=== PATIENT | male | born 1980 | race Caucasian/White ===

== ENCOUNTER 2018-03-03 09:35 | Emergency (ER) | payer OTHER ==
[2018-03-03 10:25] LABS: Absolute Monocytes 0.5 K/uL (0.1-1.3); Absolute Neutrophil 7.4 K/uL (1.8-8.0); Basophils % 0.2 % (0-1.3); Eosinophils % 1.4 % (0-4.4); Hematocrit 45.3 % (39.6-49.0); Lymphocytes % 19.7 % (15.3-44.8); MCH 29.2 pg (27.0-35.0); MCV 83.4 fL (80-100); MPV 7.7 fL (7.6-11.3); Monocytes % 4.9 % (3.3-12.3); RBC Red Blood Cell Count 5.43 M/uL (4.33-5.43)
[2018-03-03 10:34] LABS: Protime INR 0.99
[2018-03-03 10:50] LABS: ALT/SGPT 39 U/L (12-78); AST/SGOT 14 U/L (15-37); Alkaline Phosphatase 94 U/L (45-117); BUN Blood Urea Nitrogen 13 mg/dL (7-18); Bicarbonate 24 mmol/L (21-32); Bilirubin Direct 0.1 mg/dL (0-0.2); Bilirubin Total 0.5 mg/dL (0.2-1.0); Glucose Level 112 mg/dL (74-106); Magnesium 2.5 mg/dL (1.8-2.4); NT PRO-BNP 12 pg/mL (<125); Potassium 4.4 mmol/L (3.5-5.1); Protein, Total 7.7 g/dL (6.4-8.2); Sodium Level 138 mmol/L (136-145); Troponin (Emerg Dept Use Only) < 0.02 ng/mL (0.0-0.045)
--- NOTE | 2018-03-03 11:31 | RAD REPORT ---
EXAM DESCRIPTION: RAD - Chest Single View - 03/03/2018 10:44 am CLINICAL HISTORY: Chest pain COMPARISON: None. TECHNIQUE: AP portable chest image was obtained 1032 hours . FINDINGS: Lungs are clear. Heart and vasculature are normal. No measurable pleural effusion and no p neumothorax. No acute bony abnormality seen. No acute aortic findings suspected. IMPRESSION: No acute cardiopulmonary process.
--- NOTE | 2018-03-03 11:43 | RAD REPORT ---
EXAM DESCRIPTION: CT - Neck Angio - 03/03/2018 11:27 am CLINICAL HISTORY: Left-sided paresthesia as, hypertension, left subclavian steal symptoms TECHNIQUE: During dynamic enhancement using nonionic IV contrast, axial 2 mm thick images of the nec k were obtained. Sagittal and axial reconstruction images were generated and reviewed using maximum i ntensity projection protocol. All CT scans are performed using dose optimization technique as appropriate and may include automated exposure control or mA/KV adjustment according to patient size. COMPARISON: None FINDINGS: No aneurysm or vascular malformation identified. No carotid or vertebral dissection. Aortic arch is a 3 vessel configuration. The innominate, left common carotid and left subclavian tennille kang show no stenosis or acute finding. The right and left vertebral artery origins are unremarkable as well. No dissection, stenosis or acute vertebral artery finding. Vertebral arteries are codominant . Basilar artery without focal abnormality. Bilateral common carotid arteries are unremarkable. From origin to the [place], the bilateral internal carotid arteries unremarkable as well. IMPRESSION: Negative CT angio neck examination. No findings to support subclavian steal or other va scular abnormality.
--- NOTE | 2018-03-03 12:36 | ER ---
Nurse's Notes [facility] Name: Ivon Anthony II Age: 37 yrs Sex: Male : 1980 Arrival Date: 03/03/2018 Time: 09:39 Bed 18 Private MD: Geo Deluna E Diagnosis: Chest pain, unspecified Presentation: 03/03 09:45 Presenting complaint: Patient states: chest pain 6/10 and "racing heart" that began ss approx 1 hour ago. Pt reports that he has been seeing a financial services counselor for this and all they could tell him is that it is his high blood pressure. Pt reports, "it feels like I've been running". Transition of care: patient was not received from another setting of care. Onset of symptoms was March 03, 2018. Risk Assessment: Do you want to hurt yourself or someone else? Patient reports no desire to harm self or others. Initial Sepsis Screen: Does the patient meet any 2 criteria? No. Patient's initial sepsis screen is negative. Does the patient have a suspected source of infection? No. Patient's initial sepsis screen is negative. Care prior to arrival: None. 09:45 Method Of Arrival: Ambulatory ss 09:45 Acuity: MARCELO 3 ss Historical: - Allergies: 09:46 No Known Allergies; ss - Home Meds: 09:46 lisinopril 10 mg Oral tab 1 tab once daily [Active]; Lyrica Oral [Active]; ss - PMHx: 09:46 Hypertension; ss - PSHx: 09:46 None; ss - Immunization history:: Adult Immunizations up to date. - Social history:: Smoking status: Patient/guardian denies using tobacco, Patient/guardian denies using alcohol, street drugs. - Ebola Screening: : Patient negative for fever greater than or equal to 101.5 degrees Fahrenheit, and additional compatible Ebola Virus Disease symptoms Patient denies exposure to infectious person Patient denies travel to an Ebola-affected area in the 21 days before illness onset. Screenin:45 Abuse screen: Denies threats or abuse. Denies injuries from another. Nutritional sv screening: No deficits noted. Tuberculosis screening: No symptoms or risk factors identified. Fall Risk None identified. Assessment: 09:45 General: Appears in no apparent distress. uncomfortable, Behavior is calm, cooperative, sv appropriate for age. General: Reports he was outside standing when the pain started. Pain: Complains of pain in xyphoid area and mid-sternal area Pain does not radiate. Pain currently is 6 out of 10 on a pain scale. Pain began suddenly, 30 min ago. Is continuous. Neuro: Level of Consciousness is awake, alert, obeys commands, Oriented to person, place, time, situation, Moves all extremities. Full function Gait is steady. Cardiovascular: Reports chest pain, palpitations, "felt like my heart was racing." Heart tones S1 S2 present Patient's skin is warm and dry. Pulses are 3+ in right radial artery and left radial artery Rhythm is sinus rhythm. Respiratory: Airway is patent Respiratory effort is even, unlabored, Respiratory pattern is regular, symmetrical, Breath sounds are clear bilaterally. Derm: Skin is pink, warm \\T\\ dry. Vital Signs: 09:46 BP 149 / 98; Pulse 93; Resp 17; Temp 97.7(TE); Pulse Ox 100% on R/A; Weight 99.79 kg; ss Height 5 ft. 10 in. (177.80 cm); Pain 6/10; 10:18 BP 127 / 75 Supine; Pulse 90; Resp 16; Pulse Ox 98% on R/A; mh5 10:22 BP 140 / 103 LA Sitting; Pulse 88; Resp 12; Pulse Ox 100% on R/A; mh5 10:24 BP 140 / 107 Standing; Pulse 90; Resp 7; Pulse Ox 100% on R/A; mh5 10:26 BP 134 / 86 RA; Pulse 77; Resp 10; Pulse Ox 100% on R/A; mh5 10:39 BP 131 / 76 LA Sitting; Pulse 81; Resp 6; Pulse Ox 100% ; mh5 10:41 BP 126 / 78 RA Sitting; Pulse 82; Resp 7; Pulse Ox 100% on R/A; mh5 11:49 BP 142 / 80; Pulse 80; Resp 12; Pulse Ox 100% ; sv 09:46 Body Mass Index 31.57 (99.79 kg, 177.80 cm) ED Course: 09:39 Patient arrived in ED. sb2 09:39 Geo Deluna MD is Private Physician. sb2 09:43 EKG done, by studio technician. reviewed by Judah Carroll MD. mh5 09:45 Patient has correct armband on for positive identification. Placed in gown. Bed in low sv position. Call light in reach. court recording monitor on. Pulse ox on. NIBP on. Door closed. Head of bed elevated. 09:46 Triage completed. ss 09:46 Arm band placed on right wrist. ss 09:49 Nicki Hill, PRIYANK is Primary Nurse. sv 09:51 Román Sosa PA is PHCP. jr 09:51 Judah Carroll MD is Attending Physician. jr 09:59 Nurse Practitioner and/or Physician Durable Medical Equipment Repairer to see patient. sv 10:15 Initial lab(s) drawn, by mt, sent to lab. Inserted saline lock: 20 gauge in right sv antecubital area, using aseptic technique. Blood collected. Flushed right antecubital with 5 ml normal saline. Patient maintains SpO2 saturation greater than 95% on room air. 10:33 X-ray(s) taken. sv 10:38 X-ray completed. Portable x-ray completed in exam room. Patient tolerated procedure jb2 well. 10:45 XRAY Chest (1 view) In Process Unspecified. EDMS 11:28 CT Neck Angio In Process Unspecified. EDMS 12:08 Troponin (emerg Dept Use Only) Sent. [facility] 12:08 Repeat lab(s) drawn. sent to lab. [facility] 13:00 No provider procedures requiring assistance completed. IV discontinued, intact, sv bleeding controlled, No redness/swelling at site. Pressure dressing applied. Administered Medications: No medications were administered Outcome: 12:36 Discharge ordered by . [facility] 13:00 Patient left the ED. sv 13:00 Discharged to home ambulatory, with significant other. sv 13:00 Condition: stable 13:00 Discharge instructions given to patient, Instructed on discharge instructions, follow up and referral plans. Demonstrated understanding of instructions, follow-up care. Signatures: Dispatcher [employer] EDTN Nicki Hill RN RN Juan Miguel Moore jb2 Maria Luisa Martínez RN RN Román Sosa PA PA Nikkie Marie [facility] Apryl Rocha2
--- NOTE | 2018-03-03 12:36 | EDPHYS ---
Physician Documentation [facility] Name: Ivon Anthony II Age: 37 yrs Sex: Male : 1980 Arrival Date: 03/03/2018 Time: 09:39 Bed 18 Private MD: Geo Deluna E ED Physician Judah Carroll HPI: 03/03 12:04 This 37 yrs old Male presents to ER via Ambulatory with complaints of Chest jr8 Pain. 12:04 The patient or guardian reports chest pain that is located primarily in the substernal jr8 area. The pain does not radiate. Associated signs and symptoms: Pertinent positives: dizziness, lower extremity pain, near-syncope. The chest pain is described as a heaviness. Duration: The patient or guardian reports a single episode. Modifying factors: The symptoms are alleviated by nothing. the symptoms are aggravated by nothing. Severity of pain: At its worst the pain was moderate in the emergency department the pain has improved. The patient has experienced similar episodes in the past, several times. The patient has been recently seen by a physician:. Patient has been seeing cardiology for symptoms listed above without acute finding thus far. Had episode today at work. Historical: - Allergies: 09:46 No Known Allergies; ss - Home Meds: 09:46 lisinopril 10 mg Oral tab 1 tab once daily [Active]; Lyrica Oral [Active]; ss - PMHx: 09:46 Hypertension; ss - PSHx: 09:46 None; ss - Immunization history:: Adult Immunizations up to date. - Social history:: Smoking status: Patient/guardian denies using tobacco, Patient/guardian denies using alcohol, street drugs. - Ebola Screening: : Patient negative for fever greater than or equal to 101.5 degrees Fahrenheit, and additional compatible Ebola Virus Disease symptoms Patient denies exposure to infectious person Patient denies travel to an Ebola-affected area in the 21 days before illness onset. ROS: 12:06 Eyes: Negative for injury, pain, redness, and discharge, ENT: Negative for injury, jr8 pain, and discharge, Neck: Negative for injury, pain, and swelling, Respiratory: Negative for shortness of breath, cough, wheezing, and pleuritic chest pain, Abdomen/GI: Negative for abdominal pain, nausea, vomiting, diarrhea, and constipation, Back: Negative for injury and pain, MS/Extremity: Negative for injury and deformity, Skin: Negative for injury, rash, and discoloration. 12:06 Cardiovascular: Positive for chest pain, Negative for edema, orthopnea, palpitations, paroxysmal nocturnal dyspnea. 12:06 Neuro: Positive for dizziness, near syncope. Exam: 12:06 Eyes: Pupils equal round and reactive to light, extra-ocular motions intact. Lids and jr8 lashes normal. Conjunctiva and sclera are non-icteric and not injected. Cornea within normal limits. Periorbital areas with no swelling, redness, or edema. ENT: Nares patent. No nasal discharge, no septal abnormalities noted. Tympanic membranes are normal and external auditory canals are clear. Oropharynx with no redness, swelling, or masses, exudates, or evidence of obstruction, uvula midline. Mucous membranes moist. Neck: Trachea midline, no thyromegaly or masses palpated, and no cervical lymphadenopathy. Supple, full range of motion without nuchal rigidity, or vertebral point tenderness. No Meningismus. Chest/axilla: Normal chest wall appearance and motion. Nontender with no deformity. No lesions are appreciated. Cardiovascular: Regular rate and rhythm with a normal S1 and S2. No gallops, murmurs, or rubs. Normal PMI, no JVD. No pulse deficits. Respiratory: Lungs have equal breath sounds bilaterally, clear to auscultation and percussion. No rales, rhonchi or wheezes noted. No increased work of breathing, no retractions or nasal flaring. Abdomen/GI: Soft, non-tender, with normal bowel sounds. No distension or tympany. No guarding or rebound. No evidence of tenderness throughout. Back: No spinal tenderness. No costovertebral tenderness. Full range of motion. Skin: Warm, dry with normal turgor. Normal color with no rashes, no lesions, and no evidence of cellulitis. MS/ Extremity: Pulses equal, no cyanosis. Neurovascular intact. Full, normal range of motion. Neuro: Awake and alert, GCS 15, oriented to person, place, time, and situation. Cranial nerves II-XII grossly intact. Motor strength 5/5 in all extremities. Sensory grossly intact. Cerebellar exam normal. Normal gait. Vital Signs: 09:46 BP 149 / 98; Pulse 93; Resp 17; Temp 97.7(TE); Pulse Ox 100% on R/A; Weight 99.79 kg; ss Height 5 ft. 10 in. (177.80 cm); Pain 6/10; 10:18 BP 127 / 75 Supine; Pulse 90; Resp 16; Pulse Ox 98% on R/A; mh5 10:22 BP 140 / 103 LA Sitting; Pulse 88; Resp 12; Pulse Ox 100% on R/A; mh5 10:24 BP 140 / 107 Standing; Pulse 90; Resp 7; Pulse Ox 100% on R/A; mh5 10:26 BP 134 / 86 RA; Pulse 77; Resp 10; Pulse Ox 100% on R/A; mh5 10:39 BP 131 / 76 LA Sitting; Pulse 81; Resp 6; Pulse Ox 100% ; mh5 10:41 BP 126 / 78 RA Sitting; Pulse 82; Resp 7; Pulse Ox 100% on R/A; mh5 11:49 BP 142 / 80; Pulse 80; Resp 12; Pulse Ox 100% ; sv 09:46 Body Mass Index 31.57 (99.79 kg, 177.80 cm) ss MDM: 09:51 Patient medically screened. [facility] 12:35 Data reviewed: vital signs, nurses notes, lab test result(s), EKG, radiologic studies, [facility] CT scan, plain films, and as a result, I will discharge patient. Data interpreted: Pulse oximetry: on room air is 100 %. Interpretation: normal. 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 03/03 10:11 Order name: Basic Metabolic Panel; Complete Time: : [facility] 03/03 10:11 Order name: CBC with Diff; Complete Time: 10:36 [facility] 03/03 10:11 Order name: LFT's; Complete Time: [facility] 03/03 10:11 Order name: Magnesium; Complete Time: [facility] 03/03 10:11 Order name: NT PRO-BNP; Complete Time: [facility] 03/03 10:11 Order name: PT-INR; Complete Time: 10:36 8 03/03 09:50 Order name: EKG; Complete Time: 09:50 sv 03/03 09:50 Order name: EKG - Nurse/Tech; Complete Time: 09:50 sv 03/03 10:11 Order name: Troponin (emerg Dept Use Only); Complete Time: 10:51 8 03/03 10:11 Order name: XRAY Chest (1 view); Complete Time: 11:49 8 03/03 10:11 Order name: Cardiac monitoring; Complete Time: 10:26 jr8 03/03 10:12 Order name: TSH; Complete Time: 10:51 8 03/03 11:01 Order name: CT Neck Angio; Complete Time: 11:49 03/03 11:50 Order name: Troponin (emerg Dept Use Only); Complete Time: 12:35 8 03/03 10:11 Order name: IV Saline Lock; Complete Time: 10:26 8 03/03 10:11 Order name: Labs collected and sent; Complete Time: 10:27 8 03/03 10:11 Order name: O2 Per Protocol; Complete Time: 10:27 8 03/03 10:11 Order name: O2 Sat Monitoring; Complete Time: 10:27 8 03/03 10:12 Order name: Orthostatic Blood Pressure; Complete Time: 10:52 jr8 Administered Medications: No medications were administered Disposition: 14:10 Co-signature as Attending Physician, Judah Carroll MD. rn Disposition: 03/03/18 12:36 Discharged to Home. Impression: Chest pain, unspecified. - Condition is Stable. - Discharge Instructions: Nonspecific Chest Pain, Near-Syncope, Syncope. - Work release form, Family Work Release, Medication Reconciliation Form, Thank You Letter, Antibiotic Education, Prescription Opioid Use form. - Follow up: Private Physician; When: 1 - 2 days; Reason: Recheck today's complaints, Continuance of care, Re-evaluation by your physician. - Problem is new. - Symptoms have improved. Signatures: Dispatcher [employer] Nicki Elizalde RN RN sv Nieto, Roman, MD MD rn Smirch, Shelby, RN RN ss Roszak, Josh, PA PA jr8 Corrections: (The following items were deleted from the chart) 12:07 12:06 Neuro: Positive for dizziness, jr8 jr8 13:00 12:36 03/03/2018 12:36 Discharged to Home. Impression: Chest pain, unspecified. sv Condition is Stable. Forms are Medication Reconciliation Form, Thank You Letter, Antibiotic Education, Prescription Opioid Use. Follow up: Private Physician; When: 1 - 2 days; Reason: Recheck today's complaints, Continuance of care, Re-evaluation by your physician. Problem is new. Symptoms have improved. jr8
--- NOTE | 2018-03-03 13:30 | EKG ---
Test Date: 2018-03-03 Test Time: 09:43:15 Salsa Dance Instructor: NATE MEASUREMENT RESULTS: Intervals: Rate: 87 OH: 166 QRSD: 96 QT: 356 QTc: 428 [place]: P: 65 OH: 166 QRS: 57 T: 63 INTERPRETIVE STATEMENTS: Normal sinus rhythm with sinus arrhythmia Normal ECG Electronically Signed On 03-03-18 13:29:45 GANG INVESTIGATOR by Dante Bailey
== END 2018-03-03 13:00 | disposition home or self-care (01) ==
LOC: ER 09:35
DX: R07.9 Chest pain, unspecified (principal); R55 Syncope and collapse; I10 Essential (primary) hypertension
CPT/HCPCS: 36415; 70498; 71045; 80048; 80076; 83735; 83880; 84443; 84484; 85025; 85610; 93005; 99285; Q9967